=== PATIENT | male | born 1960 | race Hispanic/Latino ===

== ENCOUNTER 2016-05-19 22:59 | Emergency (ER) | payer OTHER ==
[2016-05-19 23:14] VITALS: BP 124/74; PULSE 65; RESP 16; TEMP 98.3; O2SAT 95
--- NOTE | 2016-05-20 00:01 | ED PDOC ---
Upper Extremity Pain/Injury Time Seen by Provider: 05/19/16 23:46 Chief Complaint (Nursing): Finger,Hand,&Wrist Chief Complaint (Provider): finger pain History Per: Patient Additional Complaint(s): Patient presents to emergency department with possible foreign body to right third digit. Patient states he sustained a splinter to affected digit 3 days ago. He tried to remove the splinter and is not sure if he removed it it full. He noticed increased swelling to digit today prompting ED visit. Patient is not sure of last tetanus. He denies any fever or chills, denies any drainage from the affected digit. He states he has no pain, numbness or tingling to affected area. Past Medical History Reviewed: Historical Data, Nursing Documentation, Vital Signs Vital Signs: Last Vital Signs Temp 98.3 F 05/19/16 23:11 Pulse 65 05/19/16 23:11 Resp 16 05/19/16 23:11 BP 124/74 05/19/16 23:11 Pulse Ox 95 05/19/16 23:11 - Medical History PMH: No Chronic Diseases - Surgical History Other surgeries: cervical fusion - Family History Family History: States: No Known Family Hx - Living Arrangements Living Arrangements: Alone - Social History Current smoker - smoking cessation education provided: No Alcohol: Social Drugs: Denies - Immunization History Hx Tetanus Toxoid Vaccination: No (not sure of last booster) - Home Medications Home Medications: Ambulatory Orders Medication Instructions Recorded Amoxicillin/Clavulanate [Augmentin 1 tab PO BID #14 tab 05/20/16 875 MG-125 MG] Sulfamethoxazole/Trimethoprim 1 tab PO BID #14 tab 05/20/16 [Bactrim DS 800 mg-160 mg] - Allergies Allergies/Adverse Reactions: Allergies Allergy/AdvReac Type Severity Reaction Status Date / Time No Known Allergies Allergy Verified 05/19/16 23:11 Review of Systems ROS Statement: Except As Marked, All Systems Reviewed And Found Negative Constitutional: Negative for: Fever, Chills Musculoskeletal: Positive for: Other (possible FB to right 3rd digit, swelling) Physical Exam - Reviewed Nursing Documentation Reviewed: Yes Vital Signs Reviewed: Yes - Physical Exam Appears: Positive for: Well, Non-toxic, No Acute Distress Head Exam: Negative for: ATRAUMATIC, NORMAL INSPECTION Skin: Negative for: Rash Extremity: Positive for: Other (Localized swelling and erythema noted to right 3rd digit on palmar aspect, full rom of same digit, normal cap refill, normal distal sensation, small puncture wound noted to middle phalange of right 3rd digit with no palpable FB under skin surface, no active bleeding or drainage.) Neurologic/Psych: Positive for: Alert, Oriented - ECG O2 Sat by Pulse Oximetry: 95 Pulse Ox Interpretation: Normal Medical Decision Making Medical Decision Making: Impression: Wound infection with possible retained FB to Right 3rd digit. Plan: Tetanus booster PO augmentin PO bactrim Patient was given rx augmentin and bactrim. Patient was given referral to hand refrigeration mechanic. He states he lives in [place], [place] and will prefers to find local hand specialist to follow up with. Disposition - Clinical Impression Clinical Impression: Finger infection, Requires a booster tetanus - Patient ED Disposition Is Patient to be Admitted: No Counseled Patient/Family Regarding: Diagnosis, Need For Followup, Rx Given - Disposition Referrals: Obie Bee MD [Staff Provider] - Disposition: Routine/Home Disposition Time: 00:45 Condition: STABLE Additional Instructions: Take prescription meds as directed. Soak affected digit in warm water and epsom salts. Follow up [facility] with hand specialist. Prescriptions: Amoxicillin/Clavulanate [Augmentin 875 MG-125 MG] 1 tab PO BID #14 tab Sulfamethoxazole/Trimethoprim [Bactrim DS 800 mg-160 mg] 1 tab PO BID #14 tab Instructions: Wound Infection (ED), Diphtheria/Acellular Pertussis/Tetanus Booster Vaccine (Tdap) (Injection)
[2016-05-20] MEDS ORDERED: Tmp-Smz 800 mg-160 mg DS Tab PO STA (00:40)
[2016-05-20] MEDS ORDERED: Amoxicillin-Clav 875-125 mg Tab PO STA (00:40)
[2016-05-20] MEDS ORDERED: TDAP Vaccine 0.5 mL Syr IM ONE (00:40)
[2016-05-20] MEDS ORDERED: Tmp-Smz 800 mg-160 mg DS Tab ONE (01:10)
== END 2016-05-20 01:37 | disposition home or self-care (01) ==
LOC: H.ER 22:59
DX: L08.9 Local infection of the skin and subcutaneous tissue, unspecified (principal)